=== PATIENT | female | born 1945 | race Caucasian/White ===

== ENCOUNTER 2018-11-07 22:07 | Emergency (ER) | payer OTHER ==
[~2018-11-07] VITALS: Ht 170.2 cm; Wt 95.2 kg
[~2018-11-07 22:07] MED LIST: CITA20 PO; LISI5 PO; LOVA20 PO; Norco 5-325 Ta1 EACH PO; OXYB5 PO; Percocet 5-3251 EACH PO; Prilosec20 MG PO; RANI150 PO; SUCR1 PO; Valium5 MG PO
[2018-11-07 22:30] LABS: BASOPHILS ABSOLUTE AUTO 0.03 K/mm3 (0.00-0.23); BASOPHILS PERCENT AUTO 0 % (0-2); EOSINOPHILS ABSOLUTE AUTO 0.04 K/mm3 (0.00-0.68); EOSINOPHILS PERCENT AUTO 0 % (0-6); Hematocrit 40.8 % (33.0-51.0); Hemoglobin 12.9 g/dL (11.5-16.0); IMMATURE GRAN ABSOLUTE AUTO 0.06 K/mm3 (0.00-0.10); IMMATURE GRAN PERCENT AUTO 0 % (0-1); LYMPHOCYTES ABSOLUTE AUTO 1.75 K/mm3 (0.84-5.20); LYMPHOCYTES PERCENT AUTO 12 % (21-46); MONOCYTES PERCENT AUTO 3 % (4-13); Mean Corpuscular HGB 27.9 pg (26.0-34.0); Mean Corpuscular HGB Conc 31.6 g/dL (31.5-36.5); Mean Corpuscular Volume 88 fL (80-100); NEUTROPHILS ABSOLUTE AUTO 12.99 K/mm3 (1.96-9.15); NEUTROPHILS PERCENT AUTO 85 % (41-73); Platelet Count 284 K/mm3 (150-400); RDW Coefficient Variation 13.7 % (11.7-14.2); RDW Standard Deviation 44.3 fL (35.1-46.3); Red Blood Cell Count 4.62 M/mm3 (3.80-5.20); White Blood Cell Count 15.27 K/mm3 (4.00-11.30)
[2018-11-07 22:48] LABS: Alanine Aminotransfer (ALT/SGP 22 U/L (12-78); Albumin, Blood 3.7 g/dL (3.4-5.0); Albumin/Globulin Ratio 0.9 (0.8-1.8); Alk Phos 120 U/L (50-136); Anion Gap 10 mmol/L (6-16); Aspartate Aminotrans (AST/SGOT 20 U/L (12-37); Bilirubin, Total 0.3 mg/dL (0.1-1.0); Blood Urea Nitrogen 24 mg/dL (8-24); Bun/Creatinine Ratio 40.1 (12.0-20.0); CO2, Blood 24 mmol/L (21-32); Chloride, Blood 104 mmol/L (98-108); Globulin, Blood 3.9 g/dL (2.2-4.0); Glomerular Filtration Rate >60 (60-); Glucose, Blood 146 mg/dL (70-99); Potassium, Blood 4.1 mmol/L (3.5-5.5); Sodium, Blood 138 mmol/L (136-145); Total Protein, Blood 7.6 g/dL (6.4-8.2)
[2018-11-08] MEDS ORDERED: FENO48 PO (00:22)
[2018-11-08] MEDS ORDERED: ASPI81CH PO (00:22)
[2018-11-08] MEDS ORDERED: CITA20 PO (00:23)
[2018-11-08] MEDS ORDERED: LEVSOD25 PO (00:23)
[2018-11-08] MEDS ORDERED: METO50ER PO (00:23)
[2018-11-08] MEDS ORDERED: XARELTO20 MG PO (00:24)
[2018-11-08] MEDS ORDERED: ATOR80 PO (00:24)
[2018-11-08] MEDS ORDERED: ATOR40TA (00:24)
[2018-11-08] MEDS ORDERED: LANOXIN125 MCG PO (00:25)
== END 2018-11-08 01:51 | disposition short-term general hospital (02) ==
LOC: ER 22:07
PROVIDERS: Emergency Medicine
DX: I65.22 Occlusion and stenosis of left carotid artery (principal); Z79.899 Other long term (current) drug therapy; Z87.891 Personal history of nicotine dependence
CPT/HCPCS: 36415; 70450; 70496; 80053; 85025; 96374-59; 96375-59; 96376; 99285-25; J2405; J3010; Q9967

== ENCOUNTER 2018-11-12 18:03 | Emergency (ER) | payer OTHER ==
[~2018-11-12] VITALS: Ht 167.6 cm; Wt 93.9 kg
[~2018-11-12 18:03] MED LIST changes: +ASPI81CH PO; +ATOR40TA; +ATOR80 PO; +FENO48 PO; +LANOXIN125 MCG PO; +LEVSOD25 PO; +METO50ER PO; +XARELTO20 MG PO
[2018-11-12] MEDS ORDERED: HYDR1TAB94 PO (18:17)
== END 2018-11-12 20:00 | disposition home or self-care (01) ==
LOC: ER 18:03
DX: R51 Headache (principal); Z79.899 Other long term (current) drug therapy; Z79.82 Long term (current) use of aspirin; Z86.73 Personal history of transient ischemic attack (TIA), and cerebral infarction without residual deficits; I48.91 Unspecified atrial fibrillation; Z87.891 Personal history of nicotine dependence
CPT/HCPCS: 96374; 96375; 99284-25; J1100; J1200; J1885; J2765

== ENCOUNTER 2018-11-13 23:52 | Inpatient (IN) | payer OTHER ==
[~2018-11-13] VITALS: Ht 170.2 cm; Wt 93.9 kg
[~2018-11-13 23:52] MED LIST changes: +HYDR1TAB94 PO
[2018-11-14] MEDS ORDERED: SUMA25 PO (00:38)
[2018-11-14] MEDS ORDERED: Colace250 MG PO (00:39)
[2018-11-14 02:10] LABS: BASOPHILS ABSOLUTE AUTO 0.11 K/mm3 (0.00-0.23); BASOPHILS PERCENT AUTO 0 % (0-2); EOSINOPHILS PERCENT AUTO 0 % (0-6); Hematocrit 46.3 % (33.0-51.0); IMMATURE GRAN ABSOLUTE AUTO 0.34 K/mm3 (0.00-0.10); IMMATURE GRAN PERCENT AUTO 1 % (0-1); LYMPHOCYTES ABSOLUTE AUTO 1.27 K/mm3 (0.84-5.20); LYMPHOCYTES PERCENT AUTO 4 % (21-46); MONOCYTES ABSOLUTE AUTO 1.29 K/mm3 (0.16-1.47); MONOCYTES PERCENT AUTO 4 % (4-13); Mean Corpuscular HGB 28.3 pg (26.0-34.0); Mean Corpuscular HGB Conc 32.4 g/dL (31.5-36.5); Mean Corpuscular Volume 87 fL (80-100); Mean Platelet Volume 11.1 fL (9.1-12.4); NEUTROPHILS ABSOLUTE AUTO 33.77 K/mm3 (1.96-9.15); NEUTROPHILS PERCENT AUTO 92 % (41-73); Platelet Count 320 K/mm3 (150-400); RDW Coefficient Variation 14.4 % (11.7-14.2); RDW Standard Deviation 46.2 fL (35.1-46.3); White Blood Cell Count 36.78 K/mm3 (4.00-11.30)
[2018-11-14 03:17] LABS: Alanine Aminotransfer (ALT/SGP 30 U/L (12-78); Albumin, Blood 3.6 g/dL (3.4-5.0); Albumin/Globulin Ratio 0.9 (0.8-1.8); Alk Phos 120 U/L (50-136); Anion Gap 12 mmol/L (6-16); Aspartate Aminotrans (AST/SGOT 21 U/L (12-37); Bilirubin, Total 0.5 mg/dL (0.1-1.0); Blood Urea Nitrogen 47 mg/dL (8-24); Bun/Creatinine Ratio 53.7 (12.0-20.0); CO2, Blood 24 mmol/L (21-32); Calcium, Blood 9.3 mg/dL (8.5-10.1); Chloride, Blood 102 mmol/L (98-108); Creatinine, Blood 0.88 mg/dL (0.40-1.00); Glomerular Filtration Rate >60 (60-); Glucose, Blood 178 mg/dL (70-99); Potassium, Blood 4.2 mmol/L (3.5-5.5); Sodium, Blood 138 mmol/L (136-145); Total Protein, Blood 7.6 g/dL (6.4-8.2)
--- NOTE | 2018-11-14 07:16 | NUR ---
BOWEL MOVEMENT PT HAD LIQUID INCONTINENT BM THIS AM. PT REPORT THIS IS THE FIRST BM X 1 WK AGO, AND ABD PAIN HAS SIGNIFICANTLY IMPROVED AT THIS TIME.
--- NOTE | 2018-11-14 07:17 | NUR ---
SHIFT SUMMARY/TRANSFER NOTE PT NEW ED ADMIT THIS AM, TRANSFERRED VIA W/C AND SBA TO BED. PT IS A&OX4, ABLE ANSWER Q'S APPROP/MAKE NEEDS KNOWN. PT REPORTS BEING DIAGNOSED WITH A COMPLETE CAROTID ARTERY BLOCK X 1 WK AGO, AND WAS TRANSFERRED VIA [facility] TO "[facility]". OPERATION WAS NOT DONE THE BLOCK WAS CHRONIC, AND RISK OUT WEIGHED BENEFIT PER PT AND FAMILY REPORT. HOWEVER, PT HAS HAD "VERY PAINFUL" HEADACHES SINCE DIAGNOSIS. PT REPORTS TAKING HYDROCODONE "PRETTY FREQUENTLY" SINCE THEN, CAUSING CONSTIPATION THAT PT REPORTS WITH TODAY. BOWEL TONES HYPO X 4. ABD TENDER AND PAINFUL IN RUQ AND LLQ. ABD MOD DISTENDED AND FIRM. PT REPORTS N/V THAT HAS RESOLVED FROM ZOFRAN. NPO PER ORDERS, MOUTH SWABS GIVEN PER REQUEST. NS RUNNING @ 75 ML/HR. WILL CONT TO MONITOR AND PROVIDE CARE UNTIL PRESUMED BY ONCOMING RN.
--- NOTE | 2018-11-14 17:14 | NUR ---
PT AOX4 AND COOPERATIVE OF CARE. PT STARTED SHIFT WITH A VERY LARGE INCONTENT BM. WHEN ON THE COMODE WITH AID PT SUDDENLY HAD L SIDED WEAKNESS. THIS WAS REPORTED TO DR SRIVASTAVA AND STAT CT WAS COMPLETED. WHEN PT WAS GOTTEN BACK TO BED L SIDE SEEMED TO BE WORKING, BUT SLOW TO RESPOND WHERE HER R ARM SHE COULD BARELY MOVE AND MUCH MORE DELAYED WITH HER R LEG TO LIFT WELL. THE MORNING PROGRESSED PT REPORTED A HEADACHE AND WAS TREATED PER EMAR. NOTHING HAS BEEN EFFECTIVE AT THIS TIME AND MESSAGE WAS LEFT WITH DR SRIVASTAVA OF THE CONTINUED PROBLEM. WILL CONTINUE TO MONITOR.
--- NOTE | 2018-11-14 17:47 | NUR ---
PT HAVING OFF AND ON CONFUSION WHEN SHE IS TALKING AND WHAT SHE IS TALKING ABOUT. AID THOUGHT SHE STATED SHE HAD CHEST PAIN, BUT WHEN ASKED SHE COULD NOT TELL ME. WHEN ASKED TO POINT AT THE AREA THAT HURT SHE WOULD ONLY POINT AT THER HEAD. FAMILY CONCERNED AND WANTS TO SPEAK WITH DR SRIVASTAVA. CALLED DR SRIVASTAVA AND LEFT MESSAGE AND DAUGHTER ELDA'S PHONE NUMBER.
[2018-11-14 20:10] LABS: Source, Urine Clean Catch
[2018-11-14 20:13] LABS: Bilirubin, Urine Neg (Neg); Blood, Urine Neg (Neg); Glucose Qualitative, Urine 1+ (Neg); Ketones, Urine 2+ (Neg); Leukocyte Esterase, Urine 1+ (Neg); Nitrite, Urine Neg (Neg); Protein, Urine 2+ (Neg); Specific Gravity, Urine 1.015 (1.003-1.022); Urobilinogen, Urine NORM (Normal); pH, Urine 6.5 (5.0-8.0)
[2018-11-14 20:23] LABS: Appearance, Urine Hazy (Clear); Color, Urine Yellow (P-Yellow)
[2018-11-14 20:24] LABS: Bacteria Few /hpf; Mucus Light (0-Heavy); Red Blood Cells, Urine Not Seen /hpf (0-2); Squamous Epithelial Cells Few /hpf (Few)
--- NOTE | 2018-11-14 20:25 | NUR ---
INSERTION OF STRAIGHT CATHETER AT THIS TIME FOR UA. SPECIMEN SENT TO LAB.
[2018-11-15 04:58] LABS: BASOPHILS ABSOLUTE AUTO 0.03 K/mm3 (0.00-0.23); BASOPHILS PERCENT AUTO 0 % (0-2); EOSINOPHILS ABSOLUTE AUTO 0.01 K/mm3 (0.00-0.68); EOSINOPHILS PERCENT AUTO 0 % (0-6); Hematocrit 37.4 % (33.0-51.0); IMMATURE GRAN PERCENT AUTO 1 % (0-1); LYMPHOCYTES ABSOLUTE AUTO 2.18 K/mm3 (0.84-5.20); LYMPHOCYTES PERCENT AUTO 11 % (21-46); MONOCYTES ABSOLUTE AUTO 1.06 K/mm3 (0.16-1.47); MONOCYTES PERCENT AUTO 5 % (4-13); Mean Corpuscular HGB 28.3 pg (26.0-34.0); Mean Corpuscular HGB Conc 32.1 g/dL (31.5-36.5); Mean Corpuscular Volume 88 fL (80-100); Mean Platelet Volume 10.9 fL (9.1-12.4); NEUTROPHILS PERCENT AUTO 82 % (41-73); Platelet Count 323 K/mm3 (150-400); RDW Coefficient Variation 14.4 % (11.7-14.2); RDW Standard Deviation 46.5 fL (35.1-46.3); Red Blood Cell Count 4.24 M/mm3 (3.80-5.20); White Blood Cell Count 19.68 K/mm3 (4.00-11.30)
--- NOTE | 2018-11-15 05:31 | NUR ---
SHIFT SUMMARY: PT A&O X4 T/O SHIFT. REPORTS FEELING BETTER THIS MORNING AFTER RESTING THROUGHOUT NIGHT. REPORTS HER HEADACHE HAS IMPROVED AND IS LESS WEAK THAN YESTERDAY DURING DAY. PT ABLE TO GET OUT OF BED TO BSC WITH MINIMAL ASSISTANCE USING FWW. DENIES ABD PAIN. NO EPISODES OF SUDDEN WEAKNESS. PLAN FOR MRI THIS MORNING.
--- NOTE | 2018-11-15 17:34 | NUR ---
SUMMARY PT IS A/O X4, SBA TO BS. SHE STATE NO H/A PAIN T/O DAY, STATE FEELING MUCH BETTER THAN PREVIOUS DAY. DR SRIVASTAVA IN TO SEE HER & FAMILY THIS AM, ANSWER QUESTIONS & REVIEW TESTS. ORDER MRI HEAD, COMPLETED THIS AM. DR VALLADARES STATE WILL BE IN TONITE TO REVIEW w PT/FAMILY. IV ANTIVIRAL & ANTIBX CONTINUE FOR NOW. WBC 19.7, PT HAS BEEN AFEBRILE T/O DAY. IV NS @ 75 ML/HR CONTINUES. SUPPORTIVE FAMILY w PT MOST OF DAY. VSS.
[2018-11-16] MEDS ORDERED: ACET325 PO (10:35)
[2018-11-16] MEDS ORDERED: Zovirax800 MG PO (10:44)
[2018-11-16] MEDS ORDERED: DEXA4 PO (10:45)
[2018-11-16] MEDS ORDERED: BENADRYL25 MG PO (10:46)
[2018-11-16] MEDS ORDERED: KETO10 PO (10:47)
[2018-11-16] MEDS ORDERED: METO10 PO (10:48)
--- NOTE | 2018-11-16 11:44 | NUR ---
DISCHRGE PT STATE H/A RELIEF THIS AM AFTER HEADACHE COCKTAIL GIVEN @ [address] SRIVASTAVA IN TO SEE HER, REVIEW MRI W PT/FAMILY, ANSWER QUESTIONS, STATE OK FOR D/C HOME, PROVIDE ORDERS. IV D/C INTACT. NEW SCRIPTS FAXED TO [facility]. D/C INSTRUCT PROVIDED/REVIEWED w PT & FAMILY. RN UROLOGY ASSIST HER TO SHOWER, DRESS, GATHER BELONGINGS. W/C ESCORT FROM HOSP PROVIDED. SHE IS PLEASANT/ APPRECIATIVE, STATE READY FOR D/C HOME.
== END 2018-11-16 11:17 | disposition home or self-care (01) | DRG 388 ==
LOC: ER 23:52 → MEDS 23:53
PROVIDERS: Emergency Medicine; Hospitalist; ADMIT Family Medicine
DX: K56.0 Paralytic ileus (principal); G93.41 Metabolic encephalopathy; A87.9 Viral meningitis, unspecified; Z86.73 Personal history of transient ischemic attack (TIA), and cerebral infarction without residual deficits; Z79.82 Long term (current) use of aspirin; I10 Essential (primary) hypertension; E78.5 Hyperlipidemia, unspecified; J44.9 Chronic obstructive pulmonary disease, unspecified; I25.2 Old myocardial infarction; I48.91 Unspecified atrial fibrillation; Z87.891 Personal history of nicotine dependence; K52.9 Noninfective gastroenteritis and colitis, unspecified; I65.22 Occlusion and stenosis of left carotid artery; D72.829 Elevated white blood cell count, unspecified; R51 Headache
CPT/HCPCS: 36415; 70450; 70551; 74018; 74176; 80053; 81001; 83690; 85025; 87086; 96374; 96375; 96376; 97116; 97161; 99285-25; A9270; G0378; J0133; J0696; J1100; J1885; J2405; J2765; J3010; J7030; Q0163